=== PATIENT | male | born 1995 ===

== ENCOUNTER 2017-03-12 05:00 | Emergency (ER) | payer BC ==
[2017-03-12] MEDS ORDERED: HYDROmorphone 1 MG/ML Syringe IM ONE ×2 (05:42→06:51)
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
== END 2017-03-12 07:08 | disposition short-term general hospital (02) ==
LOC: EDBD → VM.ED 05:00
DX: S02.602A Fracture of unspecified part of body of left mandible, initial encounter for closed fracture (principal); Z88.0 Allergy status to penicillin; X58.XXXA Exposure to other specified factors, initial encounter
CPT/HCPCS: 70486; 96372; 99283; J1170